=== PATIENT | female | born 1965 | race Caucasian/White ===

== ENCOUNTER 2016-05-24 17:22 | Observation (INO) | payer BC ==
[2016-05-24] MEDS ORDERED: NITROGLYCERIN OINT 1 INCH/GM PACKET TOPICAL STA (18:50)
[2016-05-24 19:26] LABS: Basophils % (A) 1 %; CH 28.7; CHCM 34.7; Eosinophils # (A) 0.1 k/uL (0-0.7); Eosinophils % (A) 2 %; HCT 35.1 % (34.0-46.0); HDW 3.05; HGB 12.2 gm/dL (11.4-16.0); Luc # (Auto) 0.12; Luc % (Auto) 2; Lymphocytes # (A) 1.9 k/uL (1.0-4.8); Lymphocytes % (A) 35 %; MCHC 34.8 g/dL (31.0-37.0); MCV 83.3 fL (80.0-100.0); Mean Platelet Volume 7.4; Monocytes # (A) 0.2 k/uL (0-1.0); Monocytes % (A) 5 %; Neutrophils # (A) 2.9 k/uL (1.3-7.7); Neutrophils % (A) 56 %; RBC 4.22 m/uL (3.80-5.40); RDW 13.3 % (11.5-15.5); WBC 5.3 k/uL (3.8-10.6); WBC (Perox) 5.48
[2016-05-24 19:35] LABS: ALT 31 U/L (9-52); AST 35 U/L (14-36); Alkaline Phosphatase 81 U/L (38-126); Anion Gap 12 mmol/L; Blood Urea Nitrogen 13 mg/dL (7-17); Calcium 9.4 mg/dL (8.4-10.2); Carbon Dioxide 21 mmol/L (22-30); Chloride 105 mmol/L (98-107); Glucose 131 mg/dL (74-99); Magnesium 1.8 mg/dL (1.6-2.3); Non-African American GFR(MDRD) >60 (>60 ml/min/1.73 sqM); Potassium 4.7 mmol/L (3.5-5.1); Sodium 138 mmol/L (137-145); Total Bilirubin 0.5 mg/dL (0.2-1.3); Total Protein 6.9 g/dL (6.3-8.2)
[2016-05-24 19:37] LABS: INR 0.9 (<1.1); Partial Thromboplastin Time 22.5 sec (22.0-30.0); Prothrombin Time 9.6 sec (9.0-12.0)
--- NOTE | 2016-05-24 19:40 | XR ---
EXAMINATION TYPE: XR chest 2V DATE OF EXAM: 05/24/2016 7:28 PM COMPARISON: NONE HISTORY: Chest pain TECHNIQUE: Frontal and lateral views of the chest are obtained. FINDINGS: Heart and mediastinum are normal. Lungs are clear. Diaphragm is normal. There are chest le ads. Bony thorax is intact. IMPRESSION: Normal chest. No change.
[2016-05-24 19:50] LABS: Creatine Kinase 57 U/L (30-135)
[2016-05-24 20:04] LABS: Creatine Kinase MB 0.3 ng/mL (0.0-2.4); Troponin I <0.012 ng/mL (0.000-0.034)
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
[2016-05-24] MEDS ORDERED: ALPRAZolam 0.25 MG TAB PO PRN (20:48)
[2016-05-24] MEDS ORDERED: NITROGLYCERIN SL TABS 0.4 MG TAB SUBLINGUAL PRN (20:48)
[2016-05-24] MEDS ORDERED: HEPARIN SODIUM,PORCINE 5,000 UNIT/ML 1 ML VIAL IV PRN (20:48)
[2016-05-24] MEDS ORDERED: HEPARIN SODIUM,PORCINE 5,000 UNIT/ML 1 ML VIAL IV ONE (20:48)
[2016-05-24] MEDS ORDERED: HEPARIN SODIUM,PORCINE/D5W PMX 25,000 UNIT in DEXTROSE/WATER 1 500ML.BAG IV SCH (21:00)
[2016-05-24 21:46] VITALS: RESP 16
[2016-05-24] MEDS ORDERED: ACETAMINOPHEN TAB 500 MG TAB PO STA (22:22)
[2016-05-24] MEDS: NITROGLYCERIN OINT 1 INCH/GM PACKET TOPICAL SCH (23:40)
[2016-05-24] MEDS ORDERED: LISINOPRIL 10 MG TAB PO SCH (23:45)
[2016-05-24] MEDS ORDERED: metFORMIN 500 MG TAB PO SCH (23:45)
[2016-05-24] MEDS ORDERED: LEVOTHYROXINE 112 MCG TAB PO SCH (23:45)
[2016-05-25] MEDS: LEVOFLOXACIN 500 MG TAB PO SCH ×2 (00:38→12:38)
[2016-05-25] MEDS: metroNIDAZOLE 500 MG TAB PO SCH ×2 (00:39→12:39)
[2016-05-25 01:01] LABS: Creatine Kinase 43 U/L (30-135)
[2016-05-25 01:14] LABS: Creatine Kinase MB 0.2 ng/mL (0.0-2.4); Troponin I <0.012 ng/mL (0.000-0.034)
[2016-05-25] MEDS: NITROGLYCERIN OINT 1 INCH/GM PACKET TOPICAL SCH (05:00)
[2016-05-25 06:35] LABS: Glucose,Whole Blood 100 mg/dL (75-99)
[2016-05-25 06:57] LABS: Mean Platelet Volume 6.9
[2016-05-25 06:58] LABS: Cholesterol 225 mg/dL (<200); HDL Cholesterol 37 mg/dL (40-60)
[2016-05-25 07:06] LABS: Triglycerides 989 mg/dL (<150)
[2016-05-25 07:09] LABS: Creatine Kinase 45 U/L (30-135)
[2016-05-25 07:22] LABS: Creatine Kinase MB <0.2 ng/mL (0.0-2.4); Troponin I <0.012 ng/mL (0.000-0.034)
--- NOTE | 2016-05-25 10:35 | P.CRDCN ---
History of Present Illness Consult date: 05/25/16 Requesting physician: Christine Thrasher Consult reason: chest pain Chief complaint: Chest pain History of present illness: This is a 51-year-old female with history of hypertension, diabetes, hyperlipidemia, hypothyroidism, she's a nonsmoker. Patient has been under a significant amount of stress recently, she presents to the hospital with symptoms of chest discomfort and associated fatigue. According to the patient she's been dealing with these symptoms for approximately one month's duration. She states that she had a chest tightness which felt like a band around her chest, discomfort in the scapula and right shoulder area. Patient also gets intermittent pain in the center of her chest which she describes as a sharp stabbing pain. She has noticed increase in fatigue, as well as occasional shortness of breath. The patient was at [facility] 3 days ago, with complaints of lower abdominal discomfort, was found to have diverticulitis and was treated with antibiotics and Flagyl. EKG on arrival showed normal sinus rhythm with no acute changes. EKG performed this morning showed normal sinus rhythm with no changes. Blood pressure on arrival 164/85, heart rate in the 90s, 98% on room air. Blood pressure this morning 90/50. Laboratory data was reviewed, CBC normal, d-dimer 0.26, potassium 4.7, BUN 13, creatinine 0.6. Troponins were negative 3. Magnesium level I.8. Triglycerides 989, cholesterol 225, HDL 37. At the time of my examination this morning, patient is chest pain-free and she states she did have a stress test in the past, however several years ago, reported to be normal at that time. Past Medical History Past Medical History: Diabetes Mellitus, Hypertension Additional Past Medical History / Comment(s): Graves disease, diverticulitis History of Any Multi-Drug Resistant Organisms: None Reported Past Surgical History: Breast Surgery, Section, Hernia Repair Past Anesthesia/Blood Transfusion Reactions: Postoperative Nausea & Vomiting ( PONV) Past Psychological History: No Psychological Hx Reported Smoking Status: Never smoker Past Alcohol Use History: None Reported Past Drug Use History: None Reported - Past Family History Mother Family Medical History: Diabetes Mellitus Father Family Medical History: Myocardial Infarction ([place]) Additional Family Medical History / Comment(s): from [place] Brother(s) Family Medical History: Diabetes Mellitus, Hypertension Daughter(s) Family Medical History: Asthma Medications and Allergies Home Medications Medication Instructions Recorded Confirmed Type Levofloxacin [Levaquin] 500 mg PO DAILY 05/24/16 05/24/16 History Levothyroxine Sodium [Synthroid] 112 mcg PO HS 05/24/16 05/24/16 History Lisinopril [Zestril] 10 mg PO HS 05/24/16 05/24/16 History metFORMIN HCL [Glucophage] 1,000 mg PO HS 05/24/16 05/24/16 History metroNIDAZOLE [Flagyl] 500 mg PO TID 05/24/16 05/24/16 History Allergies Allergy/AdvReac Type Severity Reaction Status Date / Time aspirin Allergy Nausea & Verified 05/24/16 19:18 Vomiting codeine Allergy Nausea & Verified 05/24/16 19:18 Vomiting Physical Exam Vitals: Vital Signs Temp Pulse Pulse Pulse Resp BP BP 05/25/16 08:00 76 16 05/25/16 06:55 97.2 F L 76 16 89/50 05/25/16 04:00 16 05/25/16 03:32 97.7 F 75 16 107/62 05/24/16 23:16 16 05/24/16 23:02 97.6 F 68 16 140/83 05/24/16 21:45 98.5 F 75 16 137/85 Pulse Ox 05/25/16 08:00 05/25/16 06:55 98 05/25/16 04:00 05/25/16 03:32 96 05/24/16 23:16 05/24/16 23:02 96 05/24/16 21:45 98 Intake and Output 05/24/16 05/25/16 05/25/16 22:59 06:59 14:59 Intake Total 200 150 Balance 200 150 Intake: Oral 200 150 Other: Voiding Method Toilet Toilet # Voids 1 1 PHYSICAL EXAMINATION: HEENT: Head is atraumatic, normocephalic. Pupils equal, round. Neck is supple. There is no elevated jugular venous pressure. HEART EXAMINATION: Heart S1, S2 normal. No murmur or gallop heard. CHEST EXAMINATION: Lungs are clear to auscultation and precussion. No chest wall tenderness is noted on palpation or with deep breathing. ABDOMEN: Soft, nontender. Bowel sounds are heard. No organomegaly noted. EXTREMITIES: 2+ peripheral pulses with no evidence of peripheral edema and no calf tenderness noted. NEUROLOGIC patient is awake, alert and oriented -3. . Results 05/25/16 06:24 05/24/16 19:00 Cardiac Enzymes 05/25/16 05/25/16 Range/Units 00:23 06:24 CK-MB (CK-2) 0.2 <0.2 (0.0-2.4) ng/mL Troponin I <0.012 <0.012 (0.000-0.034) ng/mL Lipids 05/25/16 Range/Units 06:24 Triglycerides 989 H (<150) mg/dL Cholesterol 225 H (<200) mg/dL HDL Cholesterol 37 L (40-60) mg/dL CBC 05/25/16 Range/Units 06:24 Plt Count 303 (150-450) k/uL Current Medications Generic Name Dose Route Start Last Admin Trade Name Freq PRN Reason Stop Dose Admin Alprazolam 0.25 mg 05/24/16 20:48 05/24/16 23:40 Xanax PO 0.25 mg QID PRN Administration Anxiety Heparin Sodium (Porcine) 0 unit 05/24/16 20:48 Heparin IV Q6HR PRN Low PTT Protocol Heparin Sodium/Dextrose 25,000 500 mls @ 17.96 mls/hr 05/24/16 21:00 21:46 unit/ IV Solution IV Not Given .Q24H PATRIA Protocol 12 UNITS/KG/HR Levofloxacin 500 mg 05/24/16 23:45 05/25/16 00:38 Levaquin PO Not Given DAILY PATRIA Levothyroxine Sodium 112 mcg 05/24/16 23:45 05/25/16 00:39 Synthroid PO 112 mcg HS PATRIA Administration Lisinopril 10 mg 05/24/16 23:45 05/25/16 00:40 Zestril PO 10 mg HS PATRIA Administration Metformin HCl 1,000 mg 05/24/16 23:45 05/25/16 00:39 Glucophage PO 500 mg HS PATRIA Administration Metronidazole 500 mg 05/24/16 23:45 05/25/16 00:39 Flagyl PO 500 mg TID PATRIA Administration Nitroglycerin 1 inch 05/25/16 00:00 05/25/16 05:00 Nitro-Bid Oint TOPICAL Not Given Q6HR [facility] Nitroglycerin 0.4 mg 05/24/16 20:48 Nitrostat SUBLINGUAL Q5M PRN Chest Pain Intake and Output 05/24/16 05/25/16 05/25/16 22:59 06:59 14:59 Intake Total 200 150 Balance 200 150 Intake: Oral 200 150 Other: Voiding Method Toilet Toilet # Voids 1 1 05/25/16 06:24 EKG Interpretations (text) EKG shows normal sinus rhythm with no acute changes. Assessment and Plan Plan: Assessment and plan #1 atypical chest discomfort, troponins negative 3, EKG shows normal sinus rhythm with no acute changes. #2 hypertension #3 diabetes #4 hyperlipidemia # 5 hypothyroidism Plan We will obtain an echocardiogram with Doppler study. We will also start the patient on Lipitor and TriCor. Check hemoglobin A1c. Scheduled for dobutamine echocardiographic study today. If echo and stress test are normal, from cardiology's perspective she may be able to be discharged home later today. Discontinue IV heparin and Nitropaste. We will make her a follow-up appointment in the office post discharge. DNP note has been reviewed, I agree with a documented findings and plan of care. Patient was seen and examined.
[2016-05-25] MEDS ORDERED: DOBUTamine DRIP for NUC MED 500 MG in DEXTROSE/WATER 1 250ML.BAG IV ONE (10:37)
--- NOTE | 2016-05-25 10:41 | ECHOF ---
Referral Reason: MEASUREMENTS -------- HEIGHT: 154.9 cm WEIGHT: 74.8 kg BP: 89/50 IVSd: 1.3 cm (0.6 - 1.1) LVIDd: 3.5 cm (3.9 - 5.3) LVPWd: 1.2 cm (0.6 - 1.1) IVSs: 1.5 cm LVIDs: 2.0 cm LVPWs: 1.7 cm Ao Diam: 2.7 cm (2.0 - 3.7) AV Cusp: 1.9 cm (1.5 - 2.6) LA Diam: 2.5 cm (2.7 - 3.8) MV EXCURSION: 10.325 mm (> 18.000) MV EF SLOPE: 76 mm/s (70 - 150) EPSS: 0.7 cm MV E Don: 0.63 m/s MV DecT: 287 ms MV A Don: 0.41 m/s MV E/A Ratio: 1.56 RAP: 5.00 mmHg RVSP: 9.71 mmHg FINDINGS -------- Sinus rhythm. This was a technically good study. There is mild concentric left ventricular hypertrophy. Overall left ventricular systolic function is normal with, an EF between 55 - 60 %. The right ventricle is normal in size and function. The left atrium is normal in size. The right atrium is normal in size. The aortic valve is trileaflet, and appears structurally normal. No aortic stenosis or regurgitation. There is trace mitral regurgitation. Trace tricuspid regurgitation present. The right ventricular systolic pressure, as measured by Doppler, is 9.71mmHg. Pulmonic valve appears structurally normal. The aortic root size is normal. The pericardium is normal. CONCLUSIONS -------- 1. Sinus rhythm. 2. Trace tricuspid regurgitation present. 3. The right ventricular systolic pressure, as measured by Doppler, is 9.71mmHg. 4. Pulmonic valve appears structurally normal. 5. The aortic root size is normal. 6. The pericardium is normal. 7. This was a technically good study. 8. There is mild concentric left ventricular hypertrophy. 9. Overall left ventricular systolic function is normal with, an EF between 55 - 60 %. 10. The right ventricle is normal in size and function. 11. The left atrium is normal in size. 12. The right atrium is normal in size. 13. The aortic valve is trileaflet, and appears structurally normal. No aortic stenosis or regurgitation. 14. There is trace mitral regurgitation. JACKER FEEDER: Winsome Barrientos RDCS
[2016-05-25] MEDS ORDERED: ATROPINE SULFATE 0.1 MG/ML 10ML SYRINGE ONE (10:52)
[2016-05-25] MEDS ORDERED: METOPROLOL TARTRATE 5 MG/5 ML VIAL IVP ONE (10:52)
[2016-05-25] MEDS ORDERED: FENOFIBRATE 160 MG TAB PO SCH (11:15)
[2016-05-25 11:58] LABS: Hemoglobin A1C 5.6 % (4.2-6.1)
[2016-05-25 12:32] LABS: Glucose,Whole Blood 100 mg/dL (75-99)
--- NOTE | 2016-05-25 13:45 | ECHOS ---
DATE OF SERVICE: 05/25/2016 AGE: 51Y SEX: F HT: 61" WT: 165 lbs. Protocol Jared: Others: Dobutamine Stress Echo Stage: 5 Dur. of Exercise: 13:00 *Heart Rate Blood Pressure *Rest: 65 Rest: 104/59 * *Max. Achieved: 170 Maximum BP: 203/121 85% PMHR: 145 100% PMHR: 171 *METS: - INDICATIONS: Chest pain. MEDICATIONS: Flagyl, Levaquin, Glucophage, Zestril, Synthroid. Baseline EKG shows sinus rhythm, normal axis, normal intervals. Patient was given intravenous dobutamine over a period of 12 minutes as per protocol. Did not have chest pain and patient did not have adequate heart rate response and she received 0.5 mg of atropine following which patient attained 100% of predicted maximal heart rate and had [address] segment depression in the inferolateral leads. Because of persistent tachycardia, I gave her 5 mg of Lopressor to reverse the effects of atropine. Baseline echo shows normal left ventricular size, wall motion and systolic function. Post dobutamine at the peak, the 2-chamber view is suboptimal, but overall we do not see any dobutamine-induced wall motion abnormalities. CONCLUSION: 1. Abnormal stress test by EKG criteria. 2. Technically challenging dobutamine echo, but no dobutamine induced wall motion abnormalities are noted on this study.
[2016-05-25 15:26] VITALS: BP 112/74; PULSE 82; TEMP 98.2
--- NOTE | 2016-05-25 15:58 | P.HPIM ---
History of Present Illness H&P Date: 05/25/16 Chief Complaint: Chest pain This is a 51-year-old female with past medical history noted below who presented to the hospital with chest pain and discomfort. Patient said that her symptoms started approximately a month ago and is being going on and off. She described it as chest tightness around her chest. She said that her pain occasionally radiated to the right shoulder. She is also describing a Center chest sharp pain that is occasionally associated with shortness of breath. She was recently diagnosed with acute diverticulitis and currently finishing antibiotic course. Patient was evaluated in the emergency room and a 12-lead EKG showed no acute ischemic changes. Patient was placed in observation and was seen and evaluated by cardiology. Serial troponin were negative 3 sets. Patient underwent a dobutamine stress echocardiogram that was negative. She underwent a Doppler echocardiogram showing preserved ejection fraction and no significant valvular abnormalities. She was cleared by cardiology for discharge. She was noted to have significantly elevated triglyceride and will be started on Lipitor with plan to repeat fasting lipid profile in 3 months. If no improvement may add fenofibrate. She was counseled extensively about lifestyle modification and exercise. She will follow-up with her primary care physician. Review of Systems Review of system: 14 points review of systems were obtained and were negative except to what were mentioned in the HPI. Past Medical History Past Medical History: Diabetes Mellitus, Hypertension Additional Past Medical History / Comment(s): Graves disease, diverticulitis History of Any Multi-Drug Resistant Organisms: None Reported Past Surgical History: Breast Surgery, Section, Hernia Repair Past Anesthesia/Blood Transfusion Reactions: Postoperative Nausea & Vomiting ( PONV) Past Psychological History: No Psychological Hx Reported Smoking Status: Never smoker Past Alcohol Use History: None Reported Past Drug Use History: None Reported - Past Family History Mother Family Medical History: Diabetes Mellitus Father Family Medical History: Myocardial Infarction ([place]) Additional Family Medical History / Comment(s): from [place] Brother(s) Family Medical History: Diabetes Mellitus, Hypertension Daughter(s) Family Medical History: Asthma Medications and Allergies Home Medications Medication Instructions Recorded Confirmed Type Levofloxacin [Levaquin] 500 mg PO DAILY 05/24/16 05/24/16 History Levothyroxine Sodium [Synthroid] 112 mcg PO HS 05/24/16 05/24/16 History Lisinopril [Zestril] 10 mg PO HS 05/24/16 05/24/16 History metFORMIN HCL [Glucophage] 1,000 mg PO HS 05/24/16 05/24/16 History metroNIDAZOLE [Flagyl] 500 mg PO TID 05/24/16 05/24/16 History Allergies Allergy/AdvReac Type Severity Reaction Status Date / Time aspirin Allergy Nausea & Verified 05/24/16 19:18 Vomiting codeine Allergy Nausea & Verified 05/24/16 19:18 Vomiting Physical Exam Vitals: Vital Signs Temp Pulse Pulse Pulse Resp BP BP 05/25/16 15:24 98.2 F 82 16 112/74 05/25/16 12:36 98.1 F 94 16 99/68 05/25/16 12:00 76 16 05/25/16 08:00 76 16 05/25/16 06:55 97.2 F L 76 16 89/50 05/25/16 04:00 16 05/25/16 03:32 97.7 F 75 16 107/62 05/24/16 23:16 16 05/24/16 23:02 97.6 F 68 16 140/83 05/24/16 21:45 98.5 F 75 16 137/85 Pulse Ox 05/25/16 15:24 94 L 05/25/16 12:36 97 05/25/16 12:00 05/25/16 08:00 05/25/16 06:55 98 05/25/16 04:00 05/25/16 03:32 96 05/24/16 23:16 05/24/16 23:02 96 05/24/16 21:45 98 Intake and Output 05/25/16 05/25/16 05/25/16 06:59 14:59 22:59 Intake Total 150 200 Balance 150 200 Intake: Oral 150 200 Other: Voiding Method Toilet Toilet # Voids 1 General: The patient is awake and alert, in no distress, and does not appear acutely ill. Eye: extra-ocular movements are intact; there is normal conjunctiva bilaterally. . Neck: The neck is supple, there is no tenderness or JVD. Cardiovascular: Normal S1-S2, no S3-S4, no murmurs. Respiratory: Lungs clear to auscultation bilaterally with no wheezes rhonchi or rales. Gastrointestinal: Abdomen is soft, nontender, nondistended, with no organomegaly. . Musculoskeletal: Normal ROM, no tenderness, There is no pedal edema. Neurological: There are no obvious motor or sensory deficits. Speech is normal. Skin: Skin is warm and dry and no rashes or lesions are noted. Results CBC & Chem 7: 05/25/16 06:24 05/24/16 19:00 Labs: Abnormal Lab Results - Last 24 Hours (Table) 05/25/16 05/25/16 05/25/16 Range/Units 06:24 06:33 12:13 POC Glucose (mg/dL) 100 H 100 H (75-99) mg/dL Triglycerides 989 H (<150) mg/dL Cholesterol 225 H (<200) mg/dL HDL Cholesterol 37 L (40-60) mg/dL Thrombosis Risk Factor Assmnt - Choose All That Apply Each Factor Represents 1 point: Age 41-60 years, Hx of IBD, Obesity (BMI >25) Other Risk Factors: No Other congenital or acquired thrombophilia - If yes, enter type in comment: No Thrombosis Risk Factor Assessment Total Risk Factor Score: 3 Thrombosis Risk Factor Assessment Level: Moderate Risk Assessment and Plan Plan: This is a 51-year-old female with past medical history noted below who presented to the hospital with chest pain and discomfort. Patient said that her symptoms started approximately a month ago and is being going on and off. She described it as chest tightness around her chest. She said that her pain occasionally radiated to the right shoulder. She is also describing a Center chest sharp pain that is occasionally associated with shortness of breath. She was recently diagnosed with acute diverticulitis and currently finishing antibiotic course. Patient was evaluated in the emergency room and a 12-lead EKG showed no acute ischemic changes. Patient was placed in observation and was seen and evaluated by cardiology. Serial troponin were negative 3 sets. Patient underwent a dobutamine stress echocardiogram that was negative. She underwent a Doppler echocardiogram showing preserved ejection fraction and no significant valvular abnormalities. She was cleared by cardiology for discharge. She was noted to have significantly elevated triglyceride and will be started on Lipitor with plan to repeat fasting lipid profile in 3 months. If no improvement may add fenofibrate. She was counseled extensively about lifestyle modification and exercise. She will follow-up with her primary care physician.
--- NOTE | 2016-05-25 16:00 | P.DS ---
Providers Date of admission: 05/24/16 21:07 Expected date of discharge: 05/25/16 Attending physician: Christine Thrasher Primary care physician: Mala Smart [facility] Course: This is a 51-year-old female with past medical history noted below who presented to the hospital with chest pain and discomfort. Patient said that her symptoms started approximately a month ago and is being going on and off. She described it as chest tightness around her chest. She said that her pain occasionally radiated to the right shoulder. She is also describing a Center chest sharp pain that is occasionally associated with shortness of breath. She was recently diagnosed with acute diverticulitis and currently finishing antibiotic course. Patient was evaluated in the emergency room and a 12-lead EKG showed no acute ischemic changes. Patient was placed in observation and was seen and evaluated by cardiology. Serial troponin were negative 3 sets. Patient underwent a dobutamine stress echocardiogram that was negative. She underwent a Doppler echocardiogram showing preserved ejection fraction and no significant valvular abnormalities. She was cleared by cardiology for discharge. She was noted to have significantly elevated triglyceride and will be started on Lipitor with plan to repeat fasting lipid profile in 3 months. If no improvement may add fenofibrate. She was counseled extensively about lifestyle modification and exercise. She will follow-up with her primary care physician. Patient Condition at Discharge: Good Plan - Discharge Summary New Discharge Prescriptions: Atorvastatin [Lipitor] 40 mg PO HS #30 tab Discharge Medication List Levofloxacin [Levaquin] 500 mg PO DAILY 05/24/16 [History] Levothyroxine Sodium [Synthroid] 112 mcg PO HS 05/24/16 [History] Lisinopril [Zestril] 10 mg PO HS 05/24/16 [History] metFORMIN HCL [Glucophage] 1,000 mg PO HS 05/24/16 [History] metroNIDAZOLE [Flagyl] 500 mg PO TID 05/24/16 [History] Atorvastatin [Lipitor] 40 mg PO HS #30 tab 05/25/16 [Rx] Follow up Appointment(s)/Referral(s): Mala Smart DO [Primary Care Provider] - 3 Days Discharge Disposition: HOME SELF-CARE
[2016-05-25] MEDS ORDERED: ATORVASTATIN 40 MG TAB PO SCH (21:00)
== END 2016-05-25 16:40 | disposition home or self-care (01) ==
LOC: EC 17:22 → 3SUR 21:07 → 3OBS 05-25 07:38
PROVIDERS: ADMIT Internal Medicine; ATTEND Internal Medicine
DX: R07.89 Other chest pain (principal); K57.92 Diverticulitis of intestine, part unspecified, without perforation or abscess without bleeding; E78.5 Hyperlipidemia, unspecified; E11.9 Type 2 diabetes mellitus without complications; E03.9 Hypothyroidism, unspecified; I10 Essential (primary) hypertension; E66.9 Obesity, unspecified; Z68.31 Body mass index [BMI] 31.0-31.9, adult; Z79.84 Long term (current) use of oral hypoglycemic drugs; Z79.2 Long term (current) use of antibiotics; Z79.899 Other long term (current) drug therapy; Z88.6 Allergy status to analgesic agent; Z88.5 Allergy status to narcotic agent; Z82.49 Family history of ischemic heart disease and other diseases of the circulatory system; Z83.3 Family history of diabetes mellitus; Z82.5 Family history of asthma and other chronic lower respiratory diseases; F41.9 Anxiety disorder, unspecified
CPT/HCPCS: 99285; 36415; 93005; 93017; 93306; 93350; 85379; 83880; 80061; 80053; 83036; 82550 ×2; 82553 ×2; 83735; 84484 ×2; 85025; 85049; 85610; 85730; 71020; G0378 ×2; J1250; J0461

== ENCOUNTER 2018-04-06 11:41 | Day surgery (SDC) | payer BC ==
[2018-04-05 09:07] VITALS: BMI 32.1
[~2018-04-06 11:41] MED LIST: LACTATED RINGERS 1,000 ML IV SCH; LIDOCAINE 1% 20 ML VIAL (10MG/ML) FOR IV START INTRADERMA PRN
[2018-04-06 12:02] VITALS: RESP 16; TEMP 98.6
[2018-04-06] MEDS ORDERED: ONDANSETRON 4 MG/2 ML VIAL IVP ONE (12:05)
[2018-04-06 12:08] LABS: Glucose,Whole Blood 116 mg/dL (75-99)
[2018-04-06] MEDS ORDERED: PROPOFOL 10 MG/ML 20 ML VIAL IV ONE (12:18)
[2018-04-06] MEDS ORDERED: LIDOCAINE 1% INJ 10MG/ML (20 ML MDV) ONE (12:18)
--- NOTE | 2018-04-06 12:36 | P.OP ---
Date of Procedure: 04/06/18 Preoperative Diagnosis: History of diverticulitis History of colon polyps History of colectomy Postoperative Diagnosis: Diverticulosis Patent anastomosis Procedure(s) Performed: Colonoscopy Surgeon: Cadence Cueva Condition: stable Disposition: same day Indications for Procedure: 53-year-old female presents for a colonoscopy. She has a history of chronic diverticulitis and has had a history of a sigmoid colectomy within the last year. She is excellent the risks, benefits and alternatives to the procedure and did provide consent prior to attending the endoscopy suite. Operative Findings: Diverticulosis Patent anastomosis Description of Procedure: The patient was brought to the endoscopy suite and placed in left lateral decubitus position. Adequate sedation was achieved using conscious sedation. A digital rectal exam was performed and internal hemorrhoids were palpated. An endoscope was then placed in the rectum and advanced to the level of the cecum as identified by landmarks including the appendiceal orifice and the ileocecal valve. The prep was good. The colonoscope was then slowly withdrawn, examining for any mucosal enterotomies. The cecum, ascending, transverse, descending and sigmoid colon were visualized adequately. There was notable diverticulosis in the descending colon just proximal to the anastomotic site from the previous colectomy. The anastomosis was patent with no evidence of ulceration. There were no obvious inflammatory changes or polypoid lesions of the colon. There is no obvious source of bleeding. Retroflexion was performed in the rectum and internal hemorrhages or visible. Excess air was removed, the colonoscope was withdrawn and the procedure terminated. The patient was then transferred to the postanesthesia recovery unit in stable condition. Repeat colonoscopy should be performed in 5 years.
[2018-04-06 12:39] VITALS: BP 121/76; PULSE 77
== END 2018-04-06 13:25 | disposition home or self-care (01) ==
LOC: ORWHC2ENDO 11:41
PROVIDERS: ATTEND Surgery
DX: Z12.11 Encounter for screening for malignant neoplasm of colon (principal); K64.8 Other hemorrhoids; K57.30 Diverticulosis of large intestine without perforation or abscess without bleeding; Z90.49 Acquired absence of other specified parts of digestive tract; Z98.0 Intestinal bypass and anastomosis status; Z86.010 Personal history of colon polyps; Z87.19 Personal history of other diseases of the digestive system; J45.909 Unspecified asthma, uncomplicated; I10 Essential (primary) hypertension; E11.9 Type 2 diabetes mellitus without complications; E78.00 Pure hypercholesterolemia, unspecified; N83.209 Unspecified ovarian cyst, unspecified side; E05.00 Thyrotoxicosis with diffuse goiter without thyrotoxic crisis or storm; Z80.0 Family history of malignant neoplasm of digestive organs; Z80.1 Family history of malignant neoplasm of trachea, bronchus and lung; Z80.3 Family history of malignant neoplasm of breast; Z80.8 Family history of malignant neoplasm of other organs or systems; Z79.84 Long term (current) use of oral hypoglycemic drugs; Z79.890 Hormone replacement therapy; Z79.899 Other long term (current) drug therapy; Z88.6 Allergy status to analgesic agent; Z88.5 Allergy status to narcotic agent
CPT/HCPCS: 81025; J2405; J2001; J2704; G0105; 45378

== ENCOUNTER → 2018-04-17 | Outpatient (CLI) | payer BC ==
--- NOTE | 2018-04-18 15:06 | MM ---
Reason for exam: screening (asymptomatic). Last mammogram was performed 1 year and 2 months ago. History: Patient had first child at age 34. Family history of breast cancer in paternal aunt at age 60, breast cancer in paternal cousin at age 49, and breast cancer in paternal cousin. Benign left mammotome panel of the left breast, January 24, 2012. Benign excisional biopsy of the left breast. Took hormonal contraceptives for 5 years. Physical Findings: A clinical breast exam by your physician is recommended on an annual basis and results should be correlated with mammographic findings. MG 3D Screening Mammo W/Cad Bilateral CC and MLO view(s) were taken. Prior study comparison: February 18, 2017, bilateral MG 3d screening mammo w/cad. April 08, 2015, bilateral MG 3d screening mammo w/cad. The breast tissue is heterogeneously dense. This may lower the sensitivity of mammography. Stable post operative distortion. No significant changes when compared with prior studies. ASSESSMENT: Benign, BI-RAD 2 RECOMMENDATION: Routine screening mammogram of both breasts in 1 year.
== END ==
LOC: RADMAMWWP 15:27
PROVIDERS: ATTEND Family Medicine
DX: Z12.31 Encounter for screening mammogram for malignant neoplasm of breast (principal)
CPT/HCPCS: 77063; 77067

== ENCOUNTER → 2020-08-26 | Outpatient (CLI) | payer BC ==
--- NOTE | 2020-08-28 08:59 | MM ---
Reason for exam: screening (asymptomatic). Last mammogram was performed 2 years and 4 months ago. History: Patient had first child at age 34. Family history of breast cancer in paternal aunt at age 60, breast cancer in paternal cousin at age 49, and breast cancer in paternal cousin. Benign left mammotome panel of the left breast, January 24, 2012. Benign excisional biopsy of the left breast. Took hormonal contraceptives for 5 years. Physical Findings: A clinical breast exam by your physician is recommended on an annual basis and results should be correlated with mammographic findings. MG 3D Screening Mammo W/Cad Bilateral CC and MLO view(s) were taken. Prior study comparison: April 17, 2018, bilateral MG 3d screening mammo w/cad. February 18, 2017, bilateral MG 3d screening mammo w/cad. No significant changes when compared with prior studies. ASSESSMENT: Benign, BI-RAD 2 RECOMMENDATION: Routine screening mammogram of both breasts in 1 year.
== END | disposition home or self-care (01) ==
LOC: RADMAMWWP 16:27
PROVIDERS: ATTEND Family Medicine
DX: Z12.31 Encounter for screening mammogram for malignant neoplasm of breast (principal)
CPT/HCPCS: 77063; 77067

== ENCOUNTER → 2021-10-14 | Outpatient (CLI) | payer OTHER ==
--- NOTE | 2021-10-14 17:34 | XR ---
EXAMINATION TYPE: XR Hip Bilateral and AP pelvis DATE OF EXAM: 10/14/2021 5:28 PM INDICATION: Patient age:Female; 56 years old; Reason for study: S23.3XXA, S40.011A, S50.01XA, S70.01XA; [facility]. COMPARISON: None. TECHNIQUE: The bilateral hips were examined in the frontal and lateral projections and a AP pelvis. FINDINGS: No evidence of any acute osseous pathology, joint dislocation, or soft tissue swelling. Mil d osteophyte formation of the acetabulum. Surgical clips projecting over the sacrum left paramedian. IMPRESSION: 1. No acute osseous pathology. 2. Mild bilateral hip osteoarthrosis.
--- NOTE | 2021-10-14 17:35 | XR ---
EXAMINATION TYPE: XR clavicle RT DATE OF EXAM: 10/14/2021 5:28 PM INDICATION: Patient age:Female; 56 years old; Reason for study: S23.3XXA, S40.011A, S50.01XA, S70.01XA; COMPARISON: Chest radiograph 04/26/2016. TECHNIQUE: AP and cephalic tilt views were obtained of the right clavicle. FINDINGS: No evidence of acute or chronic osseous pathology, joint dislocation or soft tissue swelling. IMPRESSION: No evidence of acute fracture.
--- NOTE | 2021-10-14 17:36 | XR ---
EXAMINATION TYPE: XR humerus RT DATE OF EXAM: 10/14/2021 5:28 PM INDICATION: Patient age:Female; 56 years old; Reason for study: S23.3XXA, S40.011A, S50.01XA, S70.01XA; COMPARISON: None TECHNIQUE: The right humerus was examined in AP, internally rotated and axillary projections. FINDINGS:No evidence of acute osseous pathology, joint dislocation, or soft tissue swelling. The florentin ining portions of the visualized chest are unremarkable. IMPRESSION: No acute osseous pathology or evidence for acute process.
--- NOTE | 2021-10-14 17:36 | XR ---
EXAMINATION TYPE: XR thoracic spine complete DATE OF EXAM: 10/14/2021 5:28 PM INDICATION: Patient age:Female; 56 years old; Reason for study: S23.3XXA, S40.011A, S50.01XA, S70.01XA; [facility]. COMPARISON: Chest radiograph 05/24/2016 TECHNIQUE: 2 views of the thoracic spine in Frontal and lateral projections. FINDINGS: No evidence of acute fracture. Mild multilevel disc degeneration changes with osteophyte formation. There is no evidence of disk space narrowing or loss of vertebral body height. There is normal alignm ent of the thoracic vertebral bodies. The heart is mildly enlarged for size. IMPRESSION: 1. No acute osseous pathology. 2. Minimal osteophyte formation and multilevel disc degeneration..
== END | disposition home or self-care (01) ==
LOC: RADXRMAIN 16:25
PROVIDERS: ATTEND Emergency Medicine
DX: S23.3XXA Sprain of ligaments of thoracic spine, initial encounter (principal); S40.011A Contusion of right shoulder, initial encounter; S50.01XA Contusion of right elbow, initial encounter; S70.01XA Contusion of right hip, initial encounter; M16.0 Bilateral primary osteoarthritis of hip; M51.34 Other intervertebral disc degeneration, thoracic region; M25.78 Osteophyte, vertebrae; X58.XXXA Exposure to other specified factors, initial encounter
CPT/HCPCS: 72072; 73521

== ENCOUNTER → 2021-10-28 | Outpatient (CLI) | payer BC ==
--- NOTE | 2021-10-30 15:50 | MM ---
Reason for Exam: Screening (asymptomatic). Last mammogram was performed 1 year(s) and 2 month(s) ago. Patient History: Menarche at age 14. First Full-Term at age 34. Late child-bearing (after 30). Patient used Hormonal Contraceptives for 5 years. Benign Excisional Biopsy on the left side. 01/24/2012, Benign Core Biopsy on the left side. Paternal cousin had breast cancer, age 49. Maternal cousin had breast cancer, age 66. Paternal aunt had breast cancer, age 60. Risk Values: Daxa 5 year model risk: 2.4%. NCI Lifetime model risk: 16.5%. Prior Study Comparison: 02/18/2017 Bilateral Screening Mammogram, [facility]. 04/17/2018 Bilateral Screening Mammogram, [facility]. 08/26/2020 Bilateral Screening Mammogram, [facility]. Tissue Density: There are scattered fibroglandular densities. Findings: Analyzed By CAD. There is no suspicious group of microcalcifications or new suspicious mass in either breast. Microclip left breast from prior biopsy. Overall Assessment: Benign, BI-RAD 2 Management: Screening Mammogram of both breasts in 1 year. 1. Patient should continue monthly self breast exams. 2. A clinical breast exam by your physician is recommended on an annual basis. 3. This exam should not preclude additional follow-up of suspicious palpable abnormalities. Electronically signed and approved by: Luda Castillo M.D. Radiologist
== END | disposition home or self-care (01) ==
LOC: RADMAMWWP 16:18
PROVIDERS: ATTEND Obstetrics & Gynecology
DX: Z12.31 Encounter for screening mammogram for malignant neoplasm of breast (principal); Z80.3 Family history of malignant neoplasm of breast
CPT/HCPCS: 77063; 77067

== ENCOUNTER → 2023-01-26 | Outpatient (CLI) | payer BC ==
--- NOTE | 2023-01-27 08:39 | MM ---
Reason for Exam: Screening (asymptomatic). Last mammogram was performed 1 year(s) and 3 month(s) ago. Patient History: Menarche at age 14. First Full-Term at age 34. Late child-bearing (after 30). Postmenopausal. Patient used Hormonal Contraceptives for 5 years. Benign Excisional Biopsy on the left side. 01/24/2012, Benign Core Biopsy on the left side. Paternal cousin had breast cancer, age 49. Maternal cousin had breast cancer, age 66. Paternal aunt had breast cancer, age 60. Risk Values: Daxa 5 year model risk: 2.6%. NCI Lifetime model risk: 15.9%. Prior Study Comparison: 04/17/2018 Bilateral Screening Mammogram, [facility]. 08/26/2020 Bilateral Screening Mammogram, [facility]. 10/28/2021 Bilateral MG 3D screening mammo w/cad, [facility]. Tissue Density: The breast tissue is heterogeneously dense. This may lower the sensitivity of mammography. Findings: Analyzed By CAD. Left breast biopsy clip. There is no suspicious group of microcalcifications or new suspicious mass. Overall Assessment: Benign, BI-RAD 2 Management: Screening Mammogram of both breasts in [address] [facility] will attempt to contact patient to return for supplemental views and ultrasound if indicated. Patient should continue monthly self-breast exams. A clinical breast exam by your physician is recommended on an annual basis. This exam should not preclude additional follow-up of suspicious palpable abnormalities. Note on Daxa scores and lifetime risk: 1. A Daxa score greater than 3% is considered moderate risk. If this is the case, consider specialist referral to assess eligibility for a risk reducing agent. 2. If overall lifetime risk for the development of breast cancer is 20% or higher, the patient may qualify for future screening with alternating mammogram and breast MRI. Electronically signed and approved by: Hernan Mijares DO
== END | disposition home or self-care (01) ==
LOC: RADMAMWWP 16:00
PROVIDERS: ATTEND Family Medicine
DX: Z12.31 Encounter for screening mammogram for malignant neoplasm of breast (principal); Z78.0 Asymptomatic menopausal state; Z80.3 Family history of malignant neoplasm of breast
CPT/HCPCS: 77063; 77067

== ENCOUNTER 2023-04-12 03:38 | Emergency (ER) | payer OTHER, BC ==
[2023-04-12 03:55] VITALS: TEMP 97.8
--- NOTE | 2023-04-12 05:07 | ED ---
General Adult HPI - General Chief complaint: Fall Stated complaint: [facility] - Fall, Left Side Pain Source: patient Mode of arrival: ambulatory Limitations: no limitations - History of Present Illness Initial comments: 58-year-old female presents emergency department reporting left-sided chest wall pain. States that she slipped on some water while at work area and she fell and attempted to grab onto a wheelchair however it was not locked. States that the chair went out from her and caused her to have an overstretching injury to the left chest wall. Patient does not believe that she sustained any blunt trauma. He denies hitting her head. No neck or back pain. She did not take anything for the pain before coming in. Injury happened while at work and therefore she is here for workman's comp evaluation. She denies any difficulty breathing. No other alleviating, precipitating or modifying factors - Related Data Home Medications Medication Instructions Recorded Confirmed Levothyroxine Sodium [Synthroid] 112 mcg PO 2300 05/24/16 04/06/18 metFORMIN HCL [Glucophage] 1,000 mg PO 2300 05/24/16 04/06/18 Atorvastatin [Lipitor] 40 mg PO 2300 04/05/18 04/06/18 Previous Rx's Medication Instructions Recorded Cyclobenzaprine [Flexeril] 10 mg PO TID PRN #21 tab 04/12/23 Allergies Allergy/AdvReac Type Severity Reaction Status Date / Time aspirin Allergy Nausea & Verified 04/12/23 03:46 Vomiting codeine Allergy Nausea & Verified 04/12/23 03:46 Vomiting morphine AdvReac Nausea & Verified 04/12/23 03:46 Vomiting Review of Systems ROS Statement: Those systems with pertinent positive or pertinent negative responses have been documented in the HPI. ROS Other: All systems not noted in ROS Statement are negative. Past Medical History Past Medical History: Diabetes Mellitus, Hypertension, Thyroid Disorder Additional Past Medical History / Comment(s): Graves disease, diverticulitis, KIDNEY STONES History of Any Multi-Drug Resistant Organisms: None Reported Past Surgical History: Bowel Resection, Breast Surgery, Section, Hernia Repair Past Anesthesia/Blood Transfusion Reactions: Postoperative Nausea & Vomiting (PONV) Past Psychological History: No Psychological Hx Reported Smoking Status: Never smoker Past Alcohol Use History: None Reported Past Drug Use History: None Reported - Past Family History Mother Family Medical History: No Reported History, Diabetes Mellitus Father Family Medical History: Myocardial Infarction ([place]) Additional Family Medical History / Comment(s): from [place] Brother(s) Family Medical History: Diabetes Mellitus, Hypertension Daughter(s) Family Medical History: Asthma General Exam Limitations: no limitations General appearance: alert, in no apparent distress Head exam: Present: atraumatic, normocephalic, normal inspection Eye exam: Present: normal appearance, PERRL, EOMI. Absent: scleral icterus, conjunctival injection, periorbital swelling ENT exam: Present: normal exam, mucous membranes moist Neck exam: Present: normal inspection. Absent: tenderness, meningismus, lymphadenopathy Respiratory exam: Present: normal lung sounds bilaterally, chest wall tenderness (left lateral ribs). Absent: respiratory distress, wheezes, rales, rhonchi, stridor Cardiovascular Exam: Present: regular rate, normal rhythm, normal heart sounds. Absent: systolic murmur, diastolic murmur, rubs, gallop, clicks GI/Abdominal exam: Present: soft, normal bowel sounds. Absent: distended, tenderness, guarding, rebound, rigid Extremities exam: Present: normal inspection, full ROM, normal capillary refill. Absent: tenderness, pedal edema, joint swelling, calf tenderness Back exam: Present: normal inspection Neurological exam: Present: alert, oriented X3, CN II-XII intact Psychiatric exam: Present: normal affect, normal mood Skin exam: Present: warm, dry, intact, normal color. Absent: rash Course Vital Signs 04/12/23 04/12/23 03:43 05:53 Temperature 97.8 F Pulse Rate 93 78 Respiratory 18 16 Rate Blood Pressure 146/86 134/85 O2 Sat by Pulse 96 97 Oximetry Medical Decision Making - Medical Decision Making @ -Was pt. sent in by a medical professional or institution (, PA, [employer]TING [employer]EDER, urgent care, hospital, or [facility]...) When possible be specific @ -ihs complaint Did you speak to anyone other than the patient for history (EMS, parent, family, police, friend...)? What history was obtained from this source @ -No Did you review nursing and triage notes (agree or disagree)? Why? @ -I reviewed and agree with nursing and triage notes Were old charts reviewed (outside hosp., previous admission, EMS record, old EKG, old radiological studies, urgent care reports/EKG's, [facility] records)? Report findings @ -No old charts were reviewed Differential Diagnosis (chest pain, altered mental status, abdominal pain women, abdominal pain men, vaginal bleeding, weakness, fever, dyspnea, syncope, headache, dizziness, GI bleed, back pain, seizure, CVA, palpatations, mental health, musculoskeletal)? @ -strain, sprain, rib fracture, pneumothorax EKG interpreted by me (3pts min.). @ -not done X-rays interpreted by me (1pt min.). @ -yes, no acute injuries CT interpreted by me (1pt min.). @ -None done U/S interpreted by me (1pt. min.). @ -None done What testing was considered but not performed or refused? (CT, X-rays, U/S, labs)? Why? @ -None What meds were considered but not given or refused? Why? @ -pain medications - patient refused Did you discuss the management of the patient with other professionals (professionals i.e. , PA, [employer] C[employer]TING [employer]EDER, lab, RT, psych nurse, protective services social worker, railroad wheels and axles inspector, teacher, public safety officer, case reviewer)? Give summary @ -No Was smoking cessation discussed for >3mins.? @ -No Was critical care preformed (if so, how long)? @ -No Were there social determinants of health that impacted care today? How? (Homelessness, low income, unemployed, alcoholism, drug addiction, transportation, low edu. Level, literacy, decrease access to med. care, [facility], rehab)? @ -No Was there de-escalation of care discussed even if they declined (Discuss DNR or withdrawal of care, Hospice)? DNR status @ -No What co-morbidities impacted this encounter? (DM, HTN, Smoking, COPD, CAD, Cancer, CVA, ARF, Chemo, Hep., AIDS, mental health diagnosis, sleep apnea, morbid obesity)? @ -None Was patient admitted / discharged? Hospital course, mention meds given and route, prescriptions, significant lab abnormalities, going to OR and other pertinent info. @ -Upon arrival patient was placed into room 32. Thorough history and physical exam was performed. Patient is sent for an x-ray of her left-sided ribs. She is offered something for pain but refuses. Rib x-ray is negative. Patient be discharged home with a muscle relaxer. Instructed no heavy lifting or bending until pain is improved. Follow-up with her doctor return for any new or worsening symptoms. Patient agreeable and discharged in stable condition Undiagnosed new problem with uncertain prognosis? @ -No Drug Therapy requiring intensive monitoring for toxicity (Heparin, Nitro, Insulin, Cardizem)? @ -No Were any procedures done? @ -No Diagnosis/symptom? @ -acute fall, acute left chest wall strain Acute, or Chronic, or Acute on Chronic? @ -acute Uncomplicated (without systemic symptoms) or Complicated (systemic symptoms)? @ -uncomplicated Side effects of treatment? @ -No Exacerbation, Progression, or Severe Exacerbation? @ -No Poses a threat to life or bodily function? How? (Chest pain, [place], [place], pneumonia, PE, COPD, DKA, ARF, appy, cholecystitis, CVA, Diverticulitis, Homicidal, Suicidal, threat to staff... and all critical care pts) @ -No Disposition Clinical Impression: Left-sided chest wall pain, Fall Disposition: HOME SELF-CARE Condition: Stable Instructions (If sedation given, give patient instructions): Chest Wall Pain (ED) Additional Instructions: Place warm compresses to the site. Take Aleve and the muscle relaxer as directed. Follow-up with your doctor. No heavy lifting or bending until your symptoms resolve Prescriptions: Cyclobenzaprine [Flexeril] 10 mg PO TID PRN #21 tab PRN Reason: Muscle Spasm Is patient prescribed a controlled substance at d/c from ED?: No Referrals: Bud Acuña MD [Primary Care Provider] - 1-2 days Time of Disposition: 05:45
[2023-04-12] MEDS ORDERED: CYCLOBENZAPRINE 10MG STARTER 3 TAB BTL PO STA (05:43)
--- NOTE | 2023-04-12 05:55 | XR ---
EXAM: XR Left Ribs, 2 Views CLINICAL HISTORY: ITS.REASON XR Reason: fall, rib pain TECHNIQUE: Frontal and oblique views of the left ribs. COMPARISON: No relevant prior studies available. IMPRESSION: 1. No acute cardiopulmonary abnormality. 2. No visualized rib fracture. Consider cross-sectional imaging if there is further concern.
[2023-04-12 06:11] VITALS: BP 134/85; PULSE 78; RESP 16
== END 2023-04-12 05:53 | disposition home or self-care (01) ==
LOC: EC 03:38
DX: S29.011A Strain of muscle and tendon of front wall of thorax, initial encounter (principal); E11.9 Type 2 diabetes mellitus without complications; I10 Essential (primary) hypertension; E07.9 Disorder of thyroid, unspecified; Z79.890 Hormone replacement therapy; Z79.899 Other long term (current) drug therapy; Z79.84 Long term (current) use of oral hypoglycemic drugs; Z88.6 Allergy status to analgesic agent; Z88.5 Allergy status to narcotic agent; W01.0XXA Fall on same level from slipping, tripping and stumbling without subsequent striking against object, initial encounter; Y99.0 Civilian activity done for income or pay
CPT/HCPCS: 99284

== ENCOUNTER → 2023-07-13 | Outpatient (CLI) | payer BC, OTHER ==
[2023-07-13 18:11] LABS: HGB 14.3 g/dL (12.0-15.0); MCH 26.9 pg (27.0-32.0); MCHC 33.3 g/dL (32.0-37.0); MCV 80.8 FL (80.0-97.0); Mean Platelet Volume 10.2 FL (9.5-12.2); NRBC Per 100 WBC 0 X 10*3/uL (0.00-0.01); Platelet Count 270 X 10*3/uL (140-440); RBC 5.32 X 10*6/uL (4.10-5.20); RDW 12.5 % (11.5-14.5); WBC 5.38 X 10*3/uL (4.50-10.00)
[2023-07-13 19:29] LABS: ALT 39 U/L (8-44); AST 26 U/L (13-35); Albumin 4.8 g/dL (3.8-4.9); Alkaline Phosphatase 149 U/L (41-126); BUN/Creat Ratio 21.71 Ratio (12.00-20.00); Blood Urea Nitrogen 15.2 mg/dL (9.0-27.0); Calcium 10.5 mg/dL (8.7-10.3); Carbon Dioxide 25.2 mmol/L (21.6-31.8); Chloride 100 mmol/L (96-109); Chol/HDL Ratio 7.04 Ratio; Globulin 2.4 g/dL (1.6-3.3); Glucose 140 mg/dL (70-110); Potassium 4.3 mmol/L (3.5-5.5); Sodium 141 mmol/L (135-145); Total Bilirubin 0.3 mg/dL (0.3-1.2); Total Protein 7.2 g/dL (6.2-8.2)
== END | disposition home or self-care (01) ==
LOC: LABWHC1 15:20
PROVIDERS: ATTEND Family Medicine
DX: I10 Essential (primary) hypertension (principal); E11.69 Type 2 diabetes mellitus with other specified complication; E78.5 Hyperlipidemia, unspecified; E03.9 Hypothyroidism, unspecified
CPT/HCPCS: 36415; 80053; 80061; 82306; 82607; 83036; 83721; 84443; 85027